=== PATIENT | female | born 1965 | race Caucasian/White ===

== ENCOUNTER 2017-05-19 14:44 | Emergency (ER) | payer BC ==
[~2017-05-19] VITALS: Ht 154.9 cm; Wt 40.8 kg
[2017-05-19 14:50] VITALS: BP 129/69
--- NOTE | 2017-05-19 15:07 | Emergency Room Report ---
History of Present Illness General Chief Complaint: Dyspnea/Respdistress Source: Patient Present Illness HPI [id number] walk-in with 4 days continued extremity hives, itching and SOB Denies history of asthma, COPD Went to 4 days ago for alleged allergic reaction to clindamycin she was taking for dental infection Was given "a shot" for allergic reaction and breathing treatment which helped Has been taking ?prednisone daily Denies cardiac history Smoker has been taking 3 days of zpack Allergies: Coded Allergies: CLINDAMYCIN (Verified Allergy, Unknown, 05/19/17) NAPROXEN (Unverified Allergy, Unknown, 05/19/17) PENICILLINS (Verified Allergy, Unknown, 05/19/17) Uncoded Allergies: ALIEVE (Allergy, Unknown, 05/19/17) Patient History Past Medical History: none Pertinent Family History: none Social History: Reports: smoking Now: No Reviewed Nursing Documentation: PMH: Agreed, PSxH: Agreed Nursing Documentation-PMH Past Medical History Deferred: Patient Unconscious Past Medical History: No Stated History Review of Systems All Other Systems: negative except mentioned in HPI Physical Exam Vital Signs Date Time Temp Pulse Resp B/P (MAP) Pulse Ox O2 Delivery O2 Flow Rate FiO2 05/19/17 14:50 98.1 107 20 129/69 87 Room Air Sp02 EP Interpretation: reviewed, abnormal General Appearance: normal inspection, well appearing, no apparent distress, alert, GCS 15, non-toxic Head: normocephalic, atraumatic Eyes: bilateral eye PERRL, bilateral eye EOMI ENT: normal ENT inspection, hearing grossly normal, normal voice Neck: normal inspection, full range of motion, supple, no bony tend Respiratory: normal inspection, accessory muscle use, wheezing Cardiovascular #1: regular rate, rhythm, no edema Gastrointestinal: normal inspection, normal bowel sounds, non tender, soft, no guarding, no hernia Genitourinary: no CVA tenderness Musculoskeletal: normal inspection, back normal, normal range of motion, Zhanna' s Sign negative Neurologic: normal inspection, alert, oriented x3, responsive, seasonal driver III-XII nml as tested, motor strength/tone normal, speech normal Psychiatric: normal inspection, judgement/insight normal, mood/affect normal Skin: other - Hives on extremities Medical Decision Making Diagnostic Impression: Primary Impression: Dyspnea Qualified Codes: R06.00 - Dyspnea, unspecified Additional Impressions: Wheezing Hives ER Course VSS. Afebrile Improved with nebs, steroids ?bronchospasm vs new onset asthma in a smoker Allergic reaction resolved Otherwise well appearing No angioedema CXR negative for PNA, other acute process on ED review No leuks on labs Advised completion of zpack new prednisone Rx given for next 5 days Already has ventolin PRN wheezing, SOB Chest X-Ray Diagnostic Results Chest X-Ray Diagnostic Results : Chest X-Ray Ordered: Yes # of Views/Limited/Complete: 1 View Indication: Shortness of Breath EP Interpretation: Yes Interpretation: no consolidation, no effusion, no pneumothorax, no acute cardiopulmonary disease, other - hyperinflation Interpreting ER Provider: Dr Danette Eason MD Last Vital Signs Date Time Temp Pulse Resp B/P (MAP) Pulse Ox O2 Delivery O2 Flow Rate FiO2 05/19/17 14:50 98.1 107 20 129/69 87 Room Air Status: improved Disposition: HOME, SELF-CARE Scripts Prednisone* (PREDNISONE*) 20 Mg Tablet 40 MG ORAL DAILY for 5 Days, #10 TAB Prov: DANETTE EASON M.D. 05/19/17 DANETTE EASON M.D. May 19, 2017 15:07
[2017-05-19] MEDS ORDERED: PREDNISONE20 MG ORAL ×2 (15:11→16:03)
[2017-05-19] MEDS ORDERED: VENTOLIN HFA18 GM INH (15:11)
[2017-05-19] MEDS ORDERED: ATROVENT HFA12.9 GM IH (15:11)
[2017-05-19] MEDS ORDERED: AZITHROMYC200 MG/5 M ORAL (15:11)
[2017-05-19] MEDS ORDERED: DiphenhydrAMINE 50mg/ml Inj IVP ONE (15:15)
[2017-05-19] MEDS ORDERED: Solu-MEDROL 125mg Inj IVP ONE (15:15)
[2017-05-19] MEDS: Ipratropium 0.02% Inh Soln 2.5ml UD HHN SCH ×3 (15:18→15:45)
[2017-05-19] MEDS: Albuterol ud Inhalation HHN SCH ×3 (15:18→15:45)
[2017-05-19 15:42] LABS: BASOPHILS % (AUTO) 2.1 % (0.0-2.0); EOSINOPHILS % (AUTO) 0.9 % (0.0-3.0); LYMPHOCYTES % (AUTO) 27.4 % (20.0-45.0); MEAN CORPUSCULAR HEMOGLOBIN 34.4 PG (27.0-31.0); MEAN CORPUSCULAR HGB CONC 37.2 G/DL (32.0-36.0); MEAN CORPUSCULAR VOLUME 92 FL (80-99); MEAN PLATELET VOLUME 8.1 FL (6.5-10.1); NEUTROPHILS % (AUTO) 62.7 % (45.0-75.0); PLATELET COUNT 214 K/UL (150-450); RED CELL DISTRIBUTION WIDTH 11.9 % (11.6-14.8); WHITE BLOOD COUNT 7.9 K/UL (4.8-10.8)
[2017-05-19 16:02] LABS: ALANINE AMINOTRANSFERASE 16 U/L (3-33); ALBUMIN/GLOBULIN RATIO 1.2 (1.0-2.7); ASPARTATE AMINO TRANSFERASE 30 U/L (5-40); CALCIUM 9.2 mg/dL (8.6-10.2); CARBON DIOXIDE 25 mEQ/L (20-30); CREATININE 0.5 mg/dL (0.5-0.9); GLOMERULAR FILTRATION RATE > 60 mL/min (>60); HEMOLYSIS 2
[2017-05-19 16:03] LABS: ANION GAP 16 (5-15); CHLORIDE 88 mEQ/L (98-107); POTASSIUM 3.3 mEQ/L (3.4-4.9); SODIUM 129 mEQ/L (135-145)
--- NOTE | 2017-05-19 16:03 | Diagnostic Imaging Report ---
Indication: Dyspnea Comparison: None A single view chest radiograph was obtained. Findings: Hyperinflated lungs with some COPD. Heart size is normal. Bones are osteopenic. No definite infiltrate or pleural effusion identified. Impression: COPD
[2017-05-19 16:12] VITALS: BP 129/69
[2017-05-19 16:21] LABS: TROPONIN I < 0.30 ng/mL (<=0.30)
== END 2017-05-19 16:12 | disposition home or self-care (01) ==
LOC: EMR 16:05
DX: R06.00 Dyspnea, unspecified (principal); L50.9 Urticaria, unspecified; R06.2 Wheezing; F17.200 Nicotine dependence, unspecified, uncomplicated; Z88.1 Allergy status to other antibiotic agents; Z88.0 Allergy status to penicillin
CPT/HCPCS: 36415; 71010; 80053; 84484; 85025; 93005; 94640; 96374; 96375; 99284; J1200; J2930

== ENCOUNTER 2018-01-25 12:59 | Outpatient (CLI) | payer BC ==
[~2018-01-25 12:59] MED LIST: ATROVENT HFA12.9 GM IH; AZITHROMYC200 MG/5 M ORAL; PREDNISONE20 MG ORAL; VENTOLIN HFA18 GM INH
[2018-01-25 14:05] LABS: HEMATOCRIT 43.6 % (37.0-47.0); HEMOGLOBIN 15.1 G/DL (12.0-16.0); LYMPHOCYTES % (AUTO) 31.9 % (20.0-45.0); MEAN CORPUSCULAR VOLUME 96 FL (80-99); PLATELET COUNT 224 K/UL (150-450); RED BLOOD COUNT 4.54 M/UL (4.20-5.40); RED CELL DISTRIBUTION WIDTH 12.6 % (11.6-14.8); WHITE BLOOD COUNT 8.2 K/UL (4.8-10.8)
[2018-01-25 14:30] LABS: ALANINE AMINOTRANSFERASE 26 U/L (12-78); ALBUMIN 3.7 G/DL (3.4-5.0); ALBUMIN/GLOBULIN RATIO 0.9 (1.0-2.7); ALKALINE PHOSPHATASE 112 U/L (46-116); ANION GAP 10 mmol/L (5-15); ASPARTATE AMINO TRANSFERASE 21 U/L (15-37); BILIRUBIN,TOTAL 0.3 MG/DL (0.2-1.0); BLOOD UREA NITROGEN 6 mg/dL (7-18); CALCIUM 8.9 MG/DL (8.5-10.1); CARBON DIOXIDE 25 MMOL/L (21-32); CHLORIDE 102 MMOL/L (98-107); CHOLESTEROL 201 MG/DL (< 200); CREATININE 0.5 MG/DL (0.55-1.30); HDL CHOLESTEROL 82 MG/DL (40-60); POTASSIUM 3.5 MMOL/L (3.5-5.1); SODIUM 137 MMOL/L (136-145); TRIGLYCERIDES 92 MG/DL (30-150)
== END 2018-01-25 14:59 | disposition home or self-care (01) ==
LOC: LAB 12:59
DX: J42 Unspecified chronic bronchitis (principal); R06.02 Shortness of breath
CPT/HCPCS: 36415; 80053; 80061; 83036; 84443; 85025

== ENCOUNTER 2019-09-21 13:40 | Emergency (ER) | payer BC ==
[~2019-09-21] VITALS: Ht 154.9 cm; Wt 40.4 kg
[2019-09-21] MEDS ORDERED: BREO ELLIPTA 11 EACH IH (13:54)
[2019-09-21 14:00] VITALS: BP 132/77
--- NOTE | 2019-09-21 14:00 | Emergency Room Report ---
History of Present Illness General Chief Complaint: Chest Pain Source: Patient Present Illness HPI 54-year-old female history of COPD history of recent illness presents with cough , congestion, subjective fever/chills x3 days and constant chest tightness, alleviated with Ventolin, aggravated by nothing severity is moderate, constant, no dyspnea on exertion, patient denies any nausea vomiting abdominal pain, patient presents for evaluation. Allergies: Coded Allergies: CLINDAMYCIN (Verified Allergy, Unknown, 05/19/17) NAPROXEN (Unverified Allergy, Unknown, 05/19/17) PENICILLINS (Verified Allergy, Unknown, 05/19/17) Uncoded Allergies: ALIEVE (Allergy, Unknown, 05/19/17) Patient History Past Medical History: see triage record Reviewed Nursing Documentation: PMH: Agreed; PSxH: Agreed Nursing Documentation-PMH Past Medical History: No History, Except For Hx Asthma: Yes Review of Systems All Other Systems: negative except mentioned in HPI Physical Exam Vital Signs Date Time Temp Pulse Resp B/P (MAP) Pulse Ox O2 Delivery O2 Flow Rate FiO2 09/21/19 13:51 97.9 111 19 132/77 (95) 82 Room Air Sp02 EP Interpretation: reviewed, normal General Appearance: well appearing, no apparent distress, alert Head: normocephalic, atraumatic Eyes: bilateral eye PERRL, bilateral eye EOMI ENT: uvula midline, moist mucus membranes Neck: supple, thyroid normal, supple/symm/no masses Respiratory: no respiratory distress, no retraction, no accessory muscle use, wheezing - Moderate bilaterally Cardiovascular #1: normal peripheral pulses, no edema, no gallop, no murmur, tachycardia Gastrointestinal: non tender, soft, no guarding, no rebound Musculoskeletal: normal inspection Neurologic: alert, oriented x3 Psychiatric: mood/affect normal Skin: no rash, warm/dry Medical Decision Making Diagnostic Impression: Primary Impression: COPD with exacerbation ER Course 54-year-old female presents with acute shortness of breath, most likely COPD exacerbation given her smoking history, differential diagnosis also includes pneumonia, CHF, ACS Reevaluation 50 6 PM, wheezing is significantly improved with 6 rounds of duo nebs, steroids Counseled patient disposition home with return precautions, patient does not want to be admitted to the hospital Laboratory Tests Test 09/21/19 14:26 White Blood Count 10.6 K/UL (4.8-10.8) Red Blood Count 4.83 M/UL (4.20-5.40) Hemoglobin 16.0 G/DL (12.0-16.0) Hematocrit 46.0 % (37.0-47.0) Mean Corpuscular Volume 95 FL (80-99) Mean Corpuscular Hemoglobin 33.1 PG (27.0-31.0) H Mean Corpuscular Hemoglobin Concent 34.8 G/DL (32.0-36.0) Red Cell Distribution Width 12.3 % (11.6-14.8) Platelet Count 302 K/UL (150-450) Mean Platelet Volume 7.0 FL (6.5-10.1) Neutrophils (%) (Auto) 76.7 % (45.0-75.0) H Lymphocytes (%) (Auto) 15.5 % (20.0-45.0) L Monocytes (%) (Auto) 5.9 % (1.0-10.0) Eosinophils (%) (Auto) 0.2 % (0.0-3.0) Basophils (%) (Auto) 1.8 % (0.0-2.0) Sodium Level 134 MMOL/L (136-145) L Potassium Level 4.1 MMOL/L (3.5-5.1) Chloride Level 95 MMOL/L (98-107) L Carbon Dioxide Level 28 MMOL/L (21-32) Anion Gap 11 mmol/L (5-15) Blood Urea Nitrogen 5 mg/dL (7-18) L Creatinine 0.5 MG/DL (0.55-1.30) L Estimate Glomerular Filtration Rate > 60 mL/min (>60) Glucose Level 111 MG/DL (74-106) H Calcium Level 9.6 MG/DL (8.5-10.1) Total Bilirubin 0.3 MG/DL (0.2-1.0) Aspartate Amino Transferase (AST) 18 U/L (15-37) Alanine Aminotransferase (ALT) 18 U/L (12-78) Alkaline Phosphatase 137 U/L (46-116) H Troponin I 0.000 ng/mL (0.000-0.056) Total Protein 7.9 G/DL (6.4-8.2) Albumin 3.6 G/DL (3.4-5.0) Globulin 4.3 g/dL Albumin/Globulin Ratio 0.8 (1.0-2.7) L EKG Diagnostic Results EKG Time: 14:05 EP Interpretation: Sinus tachycardia, rate 105, QTc 460, no acute ST elevations , left axis dev Rhythm Strip Diag. Results Rhythm Strip Time: 14:12 EP Interpretation: yes Rate: 101 Rhythm: other - Sinus tachycardia Chest X-Ray Diagnostic Results Chest X-Ray Diagnostic Results : Chest X-Ray Ordered: Yes # of Views/Limited/Complete: 1 View Indication: Shortness of Breath EP Interpretation: Yes Interpretation: other - Large lung volumes Impression: Other - Large lung volumes Electronically Signed by: Favian Lion MD Last Vital Signs Date Time Temp Pulse Resp B/P (MAP) Pulse Ox O2 Delivery O2 Flow Rate FiO2 09/21/19 13:51 97.9 111 19 132/77 (95) 82 Room Air Disposition: HOME, SELF-CARE Condition: Stable Scripts Albuterol Sulfate* (ALBUTEROL SULFATE MDI*) 8.5 Gm Hfa.aer.ad 2 PUFF INH Q4H PRN for cough/wheezing, #2 EA 0 Refills Prov: Favian Lion MD 09/21/19 Prednisone* (PREDNISONE*) 50 Mg Tablet 50 MG ORAL DAILY, #4 TAB 0 Refills Prov: Favian Lion MD 09/21/19 Referrals: [facility]. [facility] Patient Instructions: Chronic Obstructive Pulmonary Disease Exacerbation, Easy- to-Read Additional Instructions: The patient was provided with discharge instructions, notified to follow-up with a primary care doctor and or specialist in the next 24-48 hours, and to return to the ED if they have worsening of their symptoms. Please note that this report is being documented using [employer] technology. This can lead to erroneous entry secondary to incorrect interpretation by the dictating instrument. Favian Lion MD Sep 21, 2019 14:00
--- NOTE | 2019-09-21 14:00 | NUR ---
ED Nurse Note: Patient arrived to ED from home c/o chest pain when coughing for the last 3 days. Patient states that she recently had a cold and it feels like her cold went into her chest. She states she has felt like it has been harder to breathe when walking the dogs the last 3 days. Patient on the hospital fellow, vss. Blood sent to lab.
[2019-09-21] MEDS: Ipratropium 0.02% Inh Soln 2.5ml UD HHN SCH ×2 (14:31→14:32)
[2019-09-21] MEDS: Albuterol ud Inhalation HHN SCH ×2 (14:31→14:32)
[2019-09-21 14:55] LABS: BASOPHILS % (AUTO) 1.8 % (0.0-2.0); EOSINOPHILS % (AUTO) 0.2 % (0.0-3.0); LYMPHOCYTES % (AUTO) 15.5 % (20.0-45.0); MEAN CORPUSCULAR VOLUME 95 FL (80-99); MONOCYTES % (AUTO) 5.9 % (1.0-10.0); NEUTROPHILS % (AUTO) 76.7 % (45.0-75.0); PLATELET COUNT 302 K/UL (150-450); RED BLOOD COUNT 4.83 M/UL (4.20-5.40); RED CELL DISTRIBUTION WIDTH 12.3 % (11.6-14.8); WHITE BLOOD COUNT 10.6 K/UL (4.8-10.8)
--- NOTE | 2019-09-21 15:08 | NUR ---
ED Nurse Note: Patient resting in bed. She states she feels better after breathing treatments and can breathe easier.
[2019-09-21 15:12] LABS: ANION GAP 11 mmol/L (5-15); BLOOD UREA NITROGEN 5 mg/dL (7-18); CALCIUM 9.6 MG/DL (8.5-10.1); CARBON DIOXIDE 28 MMOL/L (21-32); CHLORIDE 95 MMOL/L (98-107); CREATININE 0.5 MG/DL (0.55-1.30); POTASSIUM 4.1 MMOL/L (3.5-5.1); SODIUM 134 MMOL/L (136-145)
[2019-09-21 15:16] LABS: ALANINE AMINOTRANSFERASE 18 U/L (12-78); ALBUMIN 3.6 G/DL (3.4-5.0); ALBUMIN/GLOBULIN RATIO 0.8 (1.0-2.7); ALKALINE PHOSPHATASE 137 U/L (46-116); ASPARTATE AMINO TRANSFERASE 18 U/L (15-37); BILIRUBIN,TOTAL 0.3 MG/DL (0.2-1.0)
[2019-09-21] MEDS ORDERED: ALBUTEROL SULF8.5 GM INH (15:57)
[2019-09-21] MEDS ORDERED: PREDNISONE50 MG ORAL (15:57)
[2019-09-21 16:07] VITALS: BP 128/78
--- NOTE | 2019-09-21 16:07 | NUR ---
ER DISCHARGE NOTE: Patient cleared for DC by Dr. Lion. VSS, verbalized understanding of DC instructions. ID band removed, IV removed. Patient ambulates with steady gait, took all belongings. No respiratory distress, patient breathing well.
--- NOTE | 2019-09-22 09:55 | Diagnostic Imaging Report ---
Indication: Cough Technique: One view of the chest Comparison: 05/19/2017 Findings: The lungs are hyperinflated. The lungs and pleural spaces are clear. The heart size is normal. Impression: Hyperinflation, presumably on the basis of COPD. No acute abnormality
== END 2019-09-21 16:07 | disposition home or self-care (01) ==
LOC: EMR 14:06
DX: J44.1 Chronic obstructive pulmonary disease with (acute) exacerbation (principal); Z88.8 Allergy status to other drugs, medicaments and biological substances; Z88.0 Allergy status to penicillin; R00.0 Tachycardia, unspecified
CPT/HCPCS: 36415; 71045; 80053; 84484; 85025; 93005; 96365; 99284; J7030; J8540